=== PATIENT | female | born 1990 | race American Indian/Alaskan Native ===

== ENCOUNTER 2019-07-24 11:16 | Outpatient (CLI) | payer OTHER ==
[2019-07-24] MEDS ORDERED: IRON236 MG PO (13:16)
[2019-07-24] MEDS ORDERED: OBSTETRIX DHA1 EACH PO (13:16)
== END 2019-07-24 14:48 | disposition home or self-care (01) ==
LOC: EDBD 11:16 → OBS/DEL 11:16
DX: O26.853 Spotting complicating pregnancy, third trimester (principal); O26.893 Other specified pregnancy related conditions, third trimester; N89.8 Other specified noninflammatory disorders of vagina

== ENCOUNTER 2019-08-24 15:15 | Inpatient (IN) | payer OTHER ==
[~2019-08-24] VITALS: Ht 160 cm; Wt 73.9 kg
[~2019-08-24 15:15] MED LIST: IRON236 MG PO; OBSTETRIX DHA1 EACH PO
== END 2019-09-06 11:45 | disposition home or self-care (01) | DRG 807 ==
LOC: OB/GYN 09-04 09:57 → LDR 09-04 09:57 → OB/GYN 09-04 13:26 → LDR 09-16 15:15 → OB/GYN 09-16 15:15
PROVIDERS: ADMIT Specialist
PROC: 10E0XZZ Delivery of Products of Conception, External Approach (ICD-10-PCS; principal; 2019-09-04)
PROC: 10907ZC Drainage of Amniotic Fluid, Therapeutic from Products of Conception, Via Natural or Artificial Opening (ICD-10-PCS; 2019-09-04)
PROC: 0W8NXZZ Division of Female Perineum, External Approach (ICD-10-PCS; 2019-09-04)
PROC: 4A1HXCZ Monitoring of Products of Conception, Cardiac Rate, External Approach (ICD-10-PCS; 2019-09-04)
DX: O80 Encounter for full-term uncomplicated delivery (principal); Z37.0 Single live birth; Z3A.38 38 weeks gestation of pregnancy